=== PATIENT | male | born 1985 | race American Indian/Alaskan Native ===

== ENCOUNTER 2016-09-27 13:56 | Emergency (ER) | payer MEDICAID ==
[2016-09-27 14:55] VITALS: BP 128/84
[2016-09-27] MEDS ORDERED: TYLENOL #3 PO ONE (17:16)
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
== END 2016-09-27 18:58 | disposition home or self-care (01) ==
LOC: ED 13:56
DX: S92.504A Nondisplaced unspecified fracture of right lesser toe(s), initial encounter for closed fracture (principal); F15.10 Other stimulant abuse, uncomplicated; F14.10 Cocaine abuse, uncomplicated; F10.10 Alcohol abuse, uncomplicated; F12.10 Cannabis abuse, uncomplicated; F17.200 Nicotine dependence, unspecified, uncomplicated; Z91.048 Other nonmedicinal substance allergy status; Y09 Assault by unspecified means; Y93.9 Activity, unspecified; Y99.9 Unspecified external cause status; Y92.89 Other specified places as the place of occurrence of the external cause
CPT/HCPCS: 99283

== ENCOUNTER 2017-04-27 10:12 | Emergency (ER) | payer MEDICAID ==
[2017-04-27] MEDS ORDERED: TYLENOL PO ONE (10:25)
[2017-04-27] MEDS ORDERED: MORPHINE IM ONE (11:30)
[2017-04-27] MEDS ORDERED: TORADOL IM ONE (11:30)
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
--- NOTE | 2017-04-27 12:41 | XRay Report ---
XRAY RIGHT KNEE THREE VIEWS: 04/27/17 10:12:00 CLINICAL: Fall and leg pain. FINDINGS: A comminuted slightly displaced fracture of the lateral tibial plateau with extension into the joint space. An oblique fracture line extends inferiorly and interrupts the cortex on the left side of the tibial metaphysis. Slight lateral displacement of the major distal fracture fragment and relatively normal alignment in the lateral view. No callus. No fracture or dislocation. The patella is intact. There is a small knee joint effusion with a fat/fluid level in the suprapatellar bursa. No foreign body or soft tissue air. IMPRESSION: Acute traumatic mildly displaced closed comminuted lateral tibial plateau fracture with extension to the cortex of the medial proximal tibial metaphysis.
[2017-04-27 14:52] VITALS: BP 118/64
== END 2017-04-27 14:53 | disposition home or self-care (01) ==
LOC: ED 10:12
DX: S82.201A Unspecified fracture of shaft of right tibia, initial encounter for closed fracture (principal); F12.10 Cannabis abuse, uncomplicated; F17.200 Nicotine dependence, unspecified, uncomplicated; Z91.09 Other allergy status, other than to drugs and biological substances; X58.XXXA Exposure to other specified factors, initial encounter; Y93.9 Activity, unspecified; Y92.89 Other specified places as the place of occurrence of the external cause; Y99.9 Unspecified external cause status
CPT/HCPCS: 29505; 73560; 96372; 99283; J1885; J2270

== ENCOUNTER 2017-04-30 07:18 | Outpatient (CLI) | payer MEDICAID ==
--- NOTE | 2017-04-30 09:17 | Cat Scan Report ---
CT right lower extremity: Tibial fracture. Transverse images were obtained from the distal femur into the proximal tibia with coronal and sagittal 2-D reformatted images. There is a fracture through the articular surface and sub-plateau portion of the lateral tibia. There is extension involving the anterior cortex running obliquely inferiorly and posteriorly to the medial cortex. The bony fragments appear to be generally well aligned with minimal separation of the fragments. The visualized distal femur and fibula are intact. Impression: Tibial fracture as described.
== END 2017-04-30 07:19 | disposition home or self-care (01) ==
LOC: CT 07:18
PROVIDERS: ATTEND Orthopaedic Surgery
DX: S82.101A Unspecified fracture of upper end of right tibia, initial encounter for closed fracture (principal); F17.200 Nicotine dependence, unspecified, uncomplicated; F12.10 Cannabis abuse, uncomplicated

== ENCOUNTER 2017-05-02 08:11 | Observation (INO) | payer MEDICAID ==
[~2017-05-02 08:11] MED LIST: ANCEF/STERILE WATER 2 GM/20 ML IV NR
[2017-05-02] MEDS ORDERED: DILAUDID ONE (08:55)
[2017-05-02] MEDS ORDERED: DIPRIVAN 10 MG/ML IV ONE (08:55)
--- NOTE | 2017-05-02 08:57 | Anesthesia Day of Surgery ---
Anesthesia Day of Surgery - Day of Surgery Patient Examined: Yes Patient H&P Reviewed: Yes Patient is NPO: Yes
--- NOTE | 2017-05-02 08:57 | Anesthesia Consultation ---
Anesthesia Consult and Med Hx Date of service: 05/02/17 - Airway Anesthetic Teeth Evaluation: Good ROM Head & Neck: Adequate Mental/Hyoid Distance: Adequate Mallampati Class: Class II Intubation Access Assessment: Probably Good - Pulmonary Exam CTA: Yes - Cardiac Exam Cardiac Exam: RRR - Pre-Operative Health Status ASA Pre-Surgery Classification: ASA2 Proposed Anesthetic Plan: General Nerve Block: Sciatic - Pulmonary Hx Smoking: Yes (1/2 PPD X 10 YRS) Hx Asthma: Yes ( CHILD ONLY) Hx Sleep Apnea: No (JEAN-CLAUDE PRE SCREEN LOW RISK) - Cardiovascular System Hx Hypertension: No - Central Nervous System Hx Back Pain: Yes - Other Systems Hx Alcohol Use: Yes (ALCHOL DAILY) Hx Substance Use: Yes (MARIJUANA DAILY) Hx Cancer: No
[2017-05-02] MEDS ORDERED: PEPCID PO NR ×2 (09:00→10:00)
[2017-05-02] MEDS ORDERED: LACTATED RINGERS 1,000 ML IV SCH (09:00)
[2017-05-02] MEDS ORDERED: VERSED IV NR (09:00)
[2017-05-02] MEDS ORDERED: XYLOCAINE MPF 2% ONE (09:04)
[2017-05-02 09:16] LABS: Basophils % (Auto) 0.4 % (0.0-1.8); Eosinophils % (Auto) 3.5 % (0.0-4.3); Hematocrit 35.9 % (35.5-45.6); Hemoglobin 12.4 gm/dl (11.8-15.2); Mean Corpuscular HGB Conc 35 % (32-34); Mean Corpuscular Hemoglobin 30 pg (28-32); Mean Corpuscular Volume 86 fl (84-94); Platelet Count 294 K/mm3 (140-440); Red Blood Count 4.17 M/mm3 (3.65-5.03); White Blood Count 7.1 K/mm3 (4.5-11.0)
[2017-05-02] MEDS ORDERED: PERCOCET 5/325 PO PRN (09:22)
[2017-05-02] MEDS ORDERED: ZOFRAN IV PRN (09:22)
[2017-05-02] MEDS ORDERED: DECADRON ONE ×2 (09:32→10:33)
[2017-05-02] MEDS ORDERED: MARCAINE-EPI/PF 0.5%-1:200,000 INFILTRATI ONE (09:32)
--- NOTE | 2017-05-02 09:41 | History and Physical Report ---
History of Present Illness Date of examination: 05/02/17 Chief complaint: Right knee pain History of present illness: 32-year-old male who complains of right knee pain and swelling after falling down some stairs on 04/27/2017, he was seen in the emergency room were x-rays taken reveal a displaced tibial Plateau fracture Medications and Allergies Allergies Allergy/AdvReac Type Severity Reaction Status Date / Time ragweed pollen Allergy Unknown Verified 04/30/17 15:07 Home Medications Medication Instructions Recorded Confirmed Last Taken Type Ketorolac [Toradol] 10 mg PO Q6H PRN #20 tablet 04/27/17 04/30/17 Unknown Rx oxyCODONE [Roxicodone] 5 mg PO Q6HR PRN #15 tablet 04/27/17 04/30/17 Unknown Rx Oxycodone HCl/Acetaminophen 1 each PO Q6HR PRN 04/30/17 05/02/17 05/02/17 06:00 History [Percocet 7.5/325 mg] Active Meds: Active Medications Cefazolin Sodium (Ancef/Sterile Water 2 Gm/20 Ml) 2 gm IV PREOP NR Stop: 05/02/17 23:59 Famotidine (Pepcid) 20 mg PO PREOP NR Stop: 05/02/17 23:59 Last Admin: 05/02/17 09:28 Dose: 20 mg Hydromorphone HCl (Dilaudid) 0.5 mg IV Q10MIN PRN PRN Reason: Pain , Severe (7-10) Stop: 05/02/17 23:59 Lactated Ringer's (Lactated Ringers) 1,000 mls @ 100 mls/hr IV DIRECT SAFIA Last Admin: 05/02/17 09:29 Dose: 100 mls/hr Midazolam HCl (Versed) 2 mg IV PREOP NR Stop: 05/02/17 23:59 Ondansetron HCl (Zofran) 4 mg IV ONCE PRN PRN Reason: Nausea And Vomiting Stop: 05/02/17 23:59 Oxycodone/Acetaminophen (Percocet 5/325) 1 tab PO ONCE PRN PRN Reason: Pain, Moderate (4-6) Stop: 05/02/17 23:59 Physical Examination - Physical exam Narrative exam: Significant orthopedic or musculoskeletal findings related to the right knee. He is noted to have swelling. No gross deformity he was tender about the proximal tibia active range of motion decreased secondary to pain distal neurovascular status is intact Eyes: PERRL ENT: Positive: clear oral mucosa Respiratory effort: normal Respiratory: bilateral: CTA Rhythm: regular Heart Sounds: Positive: S1 & S2 General gastrointestinal: Positive: soft, non-tender, non-distended, normal bowel sounds Integumentary: clear, warm, dry Neurologic: Positive: CNII-XII intact, moves all extremities, gait normal. Negative: focal deficits - Cervical Spine Neck pain: none Tenderness with palpation: none Full ROM: yes ROM: flexion: normal ROM: extension: normal ROM: rotation right: normal ROM: rotation left: normal ROM: lateral flexion right: normal ROM: lateral flexion left: normal - Lumbar Spine Back pain: none Tenderness with palpation: none Appearance: normal Full ROM: yes ROM: flexion: normal ROM: extension: normal ROM: rotation right: normal ROM: rotation left: normal ROM: lateral flexion right: normal ROM: lateral flexion left: normal Results - Labs Result Diagrams: 05/02/17 09:05 Labs: Abnormal lab results 05/02/17 Range/Units 09:05 MCHC 35 H (32-34) % RDW 13.0 L (13.2-15.2) % Lymph % (Auto) 37.0 H (13.4-35.0) % [place] % (Auto) 7.9 H (0.0-7.3) % H & H 05/02/17 Range/Units 09:05 Hgb 12.4 (11.8-15.2) gm/dl Hct 35.9 (35.5-45.6) % All other labs normal. Assessment and Plan Assessment Right tibial plateau fracture Plan recommendation We'll require open reduction and internal fixation right tibial plateau
[2017-05-02] MEDS ORDERED: NEOSPORIN GU IR ONE (09:48)
[2017-05-02] MEDS ORDERED: TORADOL ONE (10:00)
[2017-05-02] MEDS ORDERED: ZOFRAN ONE (10:33)
[2017-05-02] MEDS ORDERED: WATER FOR IRRIG STERILE IR ONE (11:04)
[2017-05-02] MEDS ORDERED: NACL 0.9% IR ONE (11:04)
--- NOTE | 2017-05-02 12:16 | Post Anesthesia Evaluation ---
- Post Anesthesia Evaluation Patient Participated: Yes Airway Patent: Yes Stable Respiratory Function: Yes Nausea/Vomiting: No Temp > 96.8F: Yes Pain Manageable: Yes Adequeate Hydration: Yes Anesthesia Complications: No
--- NOTE | 2017-05-02 12:35 | Procedure Note ---
Date of procedure: 05/02/17 Pre-op diagnosis: Right medial tibial plateau fracture Post-op diagnosis: same Procedure: Procedure Open reduction and internal fixation right medial tibial plateau Indications 32-year-old male who sustained a displaced right medial tibial plateau fracture as a result of a fall down some stairs 6 days ago Procedure Patient was brought to the OR after being given a sciatic nerve block in preop holding patient was placed on the OR table supine following induction and intubation by anesthesia the patient's right lower extremity was prepped and draped in the usual sterile manner. A timeout procedure was done to identify the patient and the correct operative site. The medial hockey puck Type incision was made along the proximal tibia curving slightly posterior taken down sharply through skin and subcutaneous knee periosteum was incised using a periosteal elevator the soft tissue from its surrounding bony attachment the fracture was identified and reduced under C-arm visualization during this a 6- hole locked plate was applied to the medial border of the proximal tibia next screws of various lengths were selected and inserted under C-arm visualization following placement of the plate and screws the wound was next copiously irrigated with normal saline solution this was followed by a layered closure metallic carlos manuel were applied to the skin as well as routine postoperative dressings. He was extubated and was taken to postanesthesia recovery in stable condition. Anesthesia: GETA Surgeon: HILARIO NOVOA Estimated blood loss: minimal Pathology: none Condition: stable Disposition: PACU
--- NOTE | 2017-05-02 12:35 | Post Anesthesia Evaluation ---
- Post Anesthesia Evaluation Patient Participated: Yes Airway Patent: Yes Stable Respiratory Function: Yes Temp > 96.8F: Yes Pain Manageable: Yes Adequeate Hydration: Yes Anesthesia Complications: No
[2017-05-02] MEDS: DILAUDID IV PRN ×5 (12:42→22:34)
[2017-05-02] MEDS ORDERED: SODIUM CHLORIDE FLUSH SYRINGE 10 ML IV NR (13:00)
--- NOTE | 2017-05-02 17:11 | XRay Report ---
Operative right knee: There is a metal plate along the medial aspect of the proximal tibia with transverse screws through the sella plateau, metaphysis and proximal shaft. The bones appear well aligned. AP view of the knee demonstrates that the medial and lateral plateaus appear well positioned relative to the femoral condyles.
[2017-05-02] MEDS ORDERED: ANCEF/NS 1 GM/50 ML 1 GM/50 ML BAG IV SCH (19:00)
[2017-05-03] MEDS: DILAUDID IV PRN ×3 (03:39→11:20)
[2017-05-03] MEDS ORDERED: ANCEF/NS 1 GM/50 ML 1 GM/50 ML BAG IV SCH (06:00)
[2017-05-03 12:11] VITALS: BP 125/81
== END 2017-05-03 14:25 | disposition home or self-care (01) ==
LOC: OR 08:11 → 3B-SURG 12:23
PROVIDERS: ADMIT Orthopaedic Surgery; ATTEND Orthopaedic Surgery
DX: S82.141A Displaced bicondylar fracture of right tibia, initial encounter for closed fracture (principal); W10.9XXA Fall (on) (from) unspecified stairs and steps, initial encounter; Y93.89 Activity, other specified; Y92.89 Other specified places as the place of occurrence of the external cause; Y99.8 Other external cause status
CPT/HCPCS: 27766; 36415; 64445; 73562; 85025; 96365; 96375; 96376; 97116; 97161; C1713; C1769; G0378; G8978; G8979; J0690; J1100; J1170; J1885; J2250; J2405; J2704; J7120

== ENCOUNTER 2017-06-18 09:21 | Outpatient (CLI) | payer MEDICAID ==
--- NOTE | 2017-06-18 10:29 | XRay Report ---
RIGHT KNEE, 3 views: History: Pain in right knee. The tibial plateau fracture has been internally fixated since 04/27/17. Alignment is anatomic. Signs of healing are noted. Otherwise, the bony structures are within normal limits. Normal joint space. No joint effusion is appreciated. IMPRESSION: Internally fixated, healing right tibial plateau fracture. No acute abnormality is detected.
== END 2017-06-18 09:22 | disposition home or self-care (01) ==
LOC: XRAY 09:21
PROVIDERS: ATTEND Orthopaedic Surgery
DX: M25.561 Pain in right knee (principal); S82.141D Displaced bicondylar fracture of right tibia, subsequent encounter for closed fracture with routine healing; X58.XXXD Exposure to other specified factors, subsequent encounter

== ENCOUNTER 2017-07-16 10:32 | Outpatient (CLI) | payer MEDICAID ==
--- NOTE | 2017-07-16 12:26 | Magnetic Resonance Report ---
MRI LUMBAR SPINE WITHOUT CONTRAST HISTORY: Low back pain. TECHNIQUE: axial T1, T2. sagittal T1,T2, STIR. COMPARISON: none. FINDINGS: The conus terminates at L1-2. No signal abnormality or mass. The cauda equina is within normal limits. No central canal stenosis. Normal height and alignment of the lumbar vertebra. The facet joints are in appropriate relationship. Normal bone marrow signal. No acute fracture or suspicious bone lesion. The discs are within normal limits. The paraspinal soft tissues are unremarkable. L1-2: Within normal limits. L2-3: Within normal limits. L3-4: Within normal limits. L4-5: Within normal limits. L5-S1: Within normal limits. IMPRESSION: Lumbar spine within normal limits. No evidence for bulging disc, herniation or nerve impingement.
== END 2017-07-16 10:33 | disposition home or self-care (01) ==
LOC: MRI 10:32
PROVIDERS: ATTEND Orthopaedic Surgery
DX: M54.5 Low back pain (principal); F17.200 Nicotine dependence, unspecified, uncomplicated
CPT/HCPCS: 72148

== ENCOUNTER 2017-12-17 12:06 | Day surgery (SDC) | payer MEDICAID ==
[2017-12-17] MEDS ORDERED: DIPRIVAN 10 MG/ML IV ONE ×2 (12:23→14:07)
[2017-12-17] MEDS ORDERED: XYLOCAINE MPF 2% ONE (12:26)
[2017-12-17] MEDS ORDERED: DILAUDID ONE (13:07)
[2017-12-17] MEDS ORDERED: LACTATED RINGERS 1,000 ML IV SCH (13:45)
[2017-12-17] MEDS ORDERED: VERSED ONE (13:52)
[2017-12-17] MEDS ORDERED: MARCAINE 0.5% 30 ML INFILTRATI ONE (13:52)
[2017-12-17] MEDS ORDERED: SUBLIMAZE ONE (13:53)
[2017-12-17] MEDS ORDERED: XYLOCAINE 1% 20 mL ONE (13:53)
--- NOTE | 2017-12-17 14:01 | Anesthesia Consultation ---
Anesthesia Consult and Med Hx Date of service: 12/17/17 - Airway Anesthetic Teeth Evaluation: Good ROM Head & Neck: Adequate Mental/Hyoid Distance: Adequate Mallampati Class: Class II Intubation Access Assessment: Probably Good - Pulmonary Exam CTA: Yes - Cardiac Exam Cardiac Exam: RRR - Pre-Operative Health Status ASA Pre-Surgery Classification: ASA2 Proposed Anesthetic Plan: General - Pulmonary Hx Smoking: Yes Hx Asthma: Yes ( CHILD ONLY) COPD: No Hx Pneumonia: No - Endocrine Hx End Stage Renal Disease: No - Other Systems Hx Substance Use: Yes (THC daily) Hx Cancer: No
[2017-12-17] MEDS ORDERED: DILAUDID IV PRN (14:04)
--- NOTE | 2017-12-17 14:04 | Anesthesia Day of Surgery ---
Anesthesia Day of Surgery - Day of Surgery Patient Examined: Yes Patient H&P Reviewed: Yes Patient is NPO: Yes
[2017-12-17] MEDS ORDERED: ANCEF ONE (14:53)
[2017-12-17] MEDS ORDERED: LACTATED RINGERS 1,000 ML ONE (15:10)
[2017-12-17] MEDS ORDERED: ZOFRAN ONE (15:29)
[2017-12-17] MEDS ORDERED: ZOFRAN IV PRN (15:36)
--- NOTE | 2017-12-17 15:40 | Procedure Note ---
Date of procedure: 12/17/17 Pre-op diagnosis: displaced right distal third radius fracture Post-op diagnosis: same Procedure: Open reduction internal fixation right radius Procedure The patient was brought to the OR after being given a axillary nerve block for postop pain management he was placed on the OR table in supine The right upper extremity was prepped and draped in the usual sterile manner. A timeout procedure was done to identify the patient and the correct operative site. The arm was exsanguinated followed by inflation of the pneumatic tourniquet to 250 mmHg. A volar incision was made centered over the flexor carpi radialis tendon and this was then taken down sharply through skin and subcutaneous the muscles were retracted out of the operative field care was taken to protect the neurovascular structures. The fracture was identified and it appeared to be a transverse type with little to no comminution next bone holding forceps were applied and the fracture was reduced and this was followed by placement of our 7 -hole VariAx to plate to the volar surface of the radial shaft plate was then secured primarily of multiple screws of various lengths and AP and lateral image was obtained on our C-arm and showed good placement of the hardware and reduction at the fracture site following this the wound was copiously irrigated and was closed in a standard routine fashion. Dressings were applied as well as a well-padded volar splint. The patient was taken to postanesthesia recovery in a stable condition Anesthesia: MAC, regional Surgeon: HILARIO NOVOA Rotary Cutter: NICOLE OSEGUERA Estimated blood loss: minimal Pathology: none Condition: stable Disposition: PACU
[2017-12-17] MEDS ORDERED: TYLENOL PO PRN (16:15)
[2017-12-17] MEDS ORDERED: TORADOL IV PRN (16:15)
[2017-12-17] MEDS ORDERED: DEMEROL IV PRN (16:15)
[2017-12-17] MEDS: DILAUDID IV PRN ×3 (16:38→17:44)
[2017-12-17 17:06] VITALS: BP 133/88
[2017-12-17] MEDS ORDERED: NORCO 7.5/325 PO PRN (17:30)
--- NOTE | 2017-12-18 07:33 | XRay Report ---
RIGHT FOREARM, 2 views: History: Right radius fracture, intraoperative films. Findings: 2 views of the radial and ulnar shafts are presented which demonstrate internal fixation of a radial shaft fracture with metal plate and 6 metal screws. Alignment is anatomic. The visualized ulna is unremarkable. IMPRESSION: Open reduction and internal fixation of a right radius fracture.
== END 2017-12-17 18:10 | disposition home or self-care (01) ==
LOC: OR 12:06
PROVIDERS: ATTEND Orthopaedic Surgery
DX: S52.501A Unspecified fracture of the lower end of right radius, initial encounter for closed fracture (principal); J45.909 Unspecified asthma, uncomplicated; F17.200 Nicotine dependence, unspecified, uncomplicated; X58.XXXA Exposure to other specified factors, initial encounter; Y93.89 Activity, other specified; Y92.89 Other specified places as the place of occurrence of the external cause; Y99.8 Other external cause status
CPT/HCPCS: 25607; 64450; 73090; C1713; J0690; J1170; J1885; J2175; J2250; J2405; J2704; J3010; J7120